=== PATIENT | male | born 1955 | race Caucasian/White ===

== ENCOUNTER 2020-08-04 11:24 | Day surgery (SDC) | payer MEDICARE, OTHER ==
[2020-08-04] VITALS (9 sets, daily range): BP systolic 122–185; BP diastolic 71–98
[~2020-08-04] VITALS: Ht 188 cm; Wt 87.1 kg
[2020-08-04] MEDS ORDERED: heparin 1,000unit/ml 10ml vial 10 ML ONE (11:54)
[2020-08-04] MEDS ORDERED: nitroGLYCERIN-Tridil 50MG/D5W 250 ML IV ONE (11:54)
[2020-08-04] MEDS ORDERED: verapamil 2.5 mg/ml inj IV ONE (11:54)
[2020-08-04] MEDS ORDERED: midazolam 1 mg/ML 2ml injection ONE ×3 (11:54→13:50)
[2020-08-04] MEDS ORDERED: LIDOcaine 1% (10mg/ml)w/preservative injection 20ml MDV ONE (11:54)
[2020-08-04] MEDS ORDERED: iohexol 350MG/ML 100ml bottle IV ONE (11:55)
[2020-08-04] MEDS ORDERED: fentaNYL/PF 50MCG/1 ML 2ML syringe ONE ×2 (11:56→13:51)
[2020-08-04] MEDS ORDERED: LORazepam 0.5 MG tablet PO PRN (12:00)
[2020-08-04] MEDS ORDERED: normal saline 1,000 ML IV SCH (12:00)
[2020-08-04] MEDS ORDERED: diphenhydrAMINE 25mg capsule PO PRN (12:00)
[2020-08-04] MEDS ORDERED: LIDOcaine/PRILOcaine 5gm cream TP STA (12:22)
[2020-08-04] MEDS ORDERED: GLIP10TA11 PO (12:31)
[2020-08-04] MEDS ORDERED: FLO0.4C PO (12:31)
[2020-08-04] MEDS ORDERED: FINA5TAB11 PO (12:31)
[2020-08-04] MEDS ORDERED: ROSU10TA28 PO (12:31)
[2020-08-04] MEDS ORDERED: RAMI10CA69 PO (12:31)
[2020-08-04] MEDS ORDERED: METO-384 PO (12:31)
[2020-08-04] MEDS ORDERED: OMEP-50 PO (12:31)
[2020-08-04] MEDS ORDERED: METF-438 PO (12:31)
[2020-08-04] MEDS ORDERED: EMPA25TA PO (12:31)
[2020-08-04 12:33] LABS: BASOPHILS % (AUTO) 0.5 % (0-1); EOSINOPHILS # (AUTO) 0.2 X10'3 (0-0.9); EOSINOPHILS % (AUTO) 3.7 % (0-6); HEMATOCRIT 48.4 % (42.0-52.0); HEMOGLOBIN 16.5 g/dl (14.0-17.9); LYMPHOCYTES % (AUTO) 21.1 % (21-51); MEAN CORPUSCULAR HEMOGLOBIN 32.4 PG (27.0-31.0); MEAN CORPUSCULAR HGB CONC 34.2 g/dL (33.0-36.5); MEAN CORPUSCULAR VOLUME 94.9 FL (78-98); MEAN PLATELET VOLUME 10.5 FL (7.4-10.4); MONOCYTES # (AUTO) 0.6 X10'3 (0-0.9); MONOCYTES % (AUTO) 13.8 % (2-12); NEUTROPHILS # (AUTO) 2.8 X10'3 (1.8-7.7); NEUTROPHILS % (AUTO) 60.9 % (42-75); PLATELET COUNT 71 X10'3 (140-440); RED CELL DISTRIBUTION WIDTH 14.1 % (11.5-14.5); WHITE BLOOD COUNT 4.6 X10'3 (4.5-11.0)
[2020-08-04 14:05] LABS: LARGE PLATELETS FEW; PLATELET ESTIMATE DECREASED
[2020-08-04] MEDS ORDERED: ondansetron/PF 4mg/2ml inj IV PRN (15:00)
[2020-08-04] MEDS ORDERED: nitroGLYCERIN 0.4mg SUBLingual tab SL PRN (15:00)
[2020-08-04] MEDS ORDERED: proCHLORperazine 10 MG/2 ml inj IV PRN (15:00)
[2020-08-04] MEDS ORDERED: OXAZEpam 15mg capsule PO PRN (15:00)
== END 2020-08-04 16:50 | disposition home or self-care (01) ==
LOC: SSTAY O 11:24
PROVIDERS: ATTEND Internal Medicine Interventional Cardiology
DX: R94.39 Abnormal result of other cardiovascular function study (principal); I25.118 Atherosclerotic heart disease of native coronary artery with other forms of angina pectoris; E11.9 Type 2 diabetes mellitus without complications; I10 Essential (primary) hypertension; I25.2 Old myocardial infarction; E78.00 Pure hypercholesterolemia, unspecified; N40.0 Benign prostatic hyperplasia without lower urinary tract symptoms; Z79.899 Other long term (current) drug therapy; Z79.84 Long term (current) use of oral hypoglycemic drugs; Z85.72 Personal history of non-Hodgkin lymphomas; Z72.89 Other problems related to lifestyle; Z82.49 Family history of ischemic heart disease and other diseases of the circulatory system
CPT/HCPCS: 36415; 82948; 85025; 93005; 93458; 99152; C1769; C1894; J1644; J2001; J2250; J3010; J7030; Q0163; Q9967; 85008; 99153; A4620; A5120; J3490